=== PATIENT | female | born 1995 | race Caucasian/White ===

== ENCOUNTER 2022-01-01 03:39 | Inpatient (IN) | payer MEDICARE ==
[~2022-01-01] VITALS: Ht 156 cm; Wt 96.0 kg
[2022-01-01] MEDS ORDERED: PREN1TAB78 PO (04:52)
[2022-01-01] MEDS ORDERED: FERR325T6 PO (04:52)
[2022-01-01] MEDS ORDERED: CARBOPROST TROMETHAMINE 250 MCG/ML AMPUL IM PRN (05:00)
[2022-01-01] MEDS ORDERED: NALOXONE HCL 0.4 MG/ML 1ML VIAL IM PRN (05:00)
[2022-01-01] MEDS ORDERED: OXYTOCIN 30 UNITS/500ML NS PMX 500 ML IV SCH ×2 (05:00→09:30)
[2022-01-01] MEDS ORDERED: MISOPROSTOL 100MCG TABLET VG SCH (05:00)
[2022-01-01] MEDS ORDERED: METHYLERGONOVINE MALEATE 0.2 MG/ML IM PRN (05:00)
[2022-01-01] MEDS ORDERED: RHO(D) IMMUNE GLOBULIN 300 MCG/SYR IM ONE (05:00)
[2022-01-01] MEDS ORDERED: OXYTOCIN 10 UNITS/ML 1ML ONE ×2 (05:09→08:31)
[2022-01-01] MEDS ORDERED: MORPHINE SULFATE/PF 1MG/ML 10ML AMP ONE (05:09)
[2022-01-01] MEDS ORDERED: CEFAZOLIN SODIUM 1000MG/VIAL ONE (05:09)
[2022-01-01] MEDS ORDERED: FENTANYL CITRATE/PF 50MCG/ML 2ML VIAL ONE (05:09)
[2022-01-01] MEDS ORDERED: ONDANSETRON HCL 4MG/2ML INJ ONE (05:09)
[2022-01-01] MEDS ORDERED: EPHEDRINE SULFATE 50MG/ML VIAL ONE (05:09)
[2022-01-01] MEDS ORDERED: CITRIC ACID/SODIUM CITRATE SOLN 30ML UDC PO ONE (05:30)
[2022-01-01 05:33] LABS: BASOPHILS % 0.3 % (0.0-2.0); EOSINOPHILS % 0.8 % (0.0-5.0); HEMATOCRIT. 32.2 % (36.0-48.0); HEMOGLOBIN. 10.3 g/dL (12.0-16.0); LYMPHOCYTES % 19.7 % (20.0-50.0); MEAN CORPUSCULAR VOLUME 77.6 fL (81.0-99.0); MEAN PLATELET VOLUME 8.9 fl (7.4-10.4); MONOCYTES % 4.4 % (2.0-8.0); NEUTROPHILS % 74.8 % (40.0-76.0); PLATELET 365 x1000/uL (130-400); RED BLOOD CELL COUNT 4.14 mill/uL (4.2-5.4); RED CELL DISTRIBUTION WIDTH 14.8 % (11.6-14.6)
[2022-01-01 05:39] LABS: *AMPHETAMINES SCREEN URINE NEGATIVE (NEGATIVE); *BARBITURATES SCREEN URINE NEGATIVE (NEGATIVE); *BENZODIAZEPINES SCREEN URINE NEGATIVE (NEGATIVE); *COCAINE SCREEN URINE NEGATIVE (NEGATIVE); CANNABINOID URINE SCREEN NEGATIVE (NEGATIVE); METHADONE URINE SCREEN NEGATIVE (NEGATIVE); OPIATES URINE SCREEN NEGATIVE (NEGATIVE); PHENCYCLIDINE URINE SCREEN NEGATIVE (NEGATIVE)
[2022-01-01 05:40] LABS: INR 0.9; PARTIAL THROMBOPLASTIN TIME 24.5 sec (23.4-31.0); PROTHROMBIN TIME 10.2 sec (9.6-11.0)
[2022-01-01 06:00] LABS: HEPATITIS B SURFACE ANTIGEN NEGATIVE
[2022-01-01] MEDS: LACTATED RINGERS 1,000 ML IV SCH (06:23)
[2022-01-01] MEDS ORDERED: DIPHENHYDRAMINE 50MG/ML VIAL ONE (08:24)
[2022-01-01] MEDS ORDERED: KETOROLAC 60MG/2ML VIAL IM ONE (08:30)
[2022-01-01] MEDS ORDERED: BUTORPHANOL TARTRATE 2 MG/ML VIAL IV PRN (08:30)
[2022-01-01] MEDS ORDERED: NALOXONE HCL 0.4 MG/ML 1ML VIAL IV PRN (08:30)
[2022-01-01] MEDS ORDERED: BISACODYL 10MG SUPP PR PRN (09:30)
[2022-01-01] MEDS ORDERED: LANOLIN OINT 7GM TUBE TOP PRN (09:30)
[2022-01-01] MEDS ORDERED: IBUPROFEN 400MG TABLET PO PRN (09:30)
[2022-01-01] MEDS ORDERED: ONDANSETRON HCL 4MG/2ML INJ IV PRN (09:30)
[2022-01-01] MEDS ORDERED: DIPHENHYDRAMINE 25MG CAPSULE PO PRN (09:30)
[2022-01-01] MEDS ORDERED: HEMORRHOIDAL SUPP PR PRN (09:30)
[2022-01-01] MEDS ORDERED: ACETAMINOPHEN WITH CODEINE 300/30MG TABLET PO PRN (09:30)
[2022-01-01] MEDS ORDERED: RHO(D) IMMUNE GLOBULIN 300 MCG/SYR IM PRN (09:30)
[2022-01-01 09:40] LABS: CLARITY URINE HAZY (CLEAR); COLOR URINE YELLOW (YELLOW)
[2022-01-01 09:41] LABS: KETONES URINE NEGATIVE (NEGATIVE); LEUKOCYTE ESTERASE URINE NEGATIVE (NEGATIVE); NITRITE URINE NEGATIVE (NEGATIVE); OCCULT BLOOD URINE 3+ (NEGATIVE); PROTEIN URINE 1+ (NEGATIVE); UROBILINOGEN URINE 0.2 E.U./dL (0.2-1.0)
[2022-01-01 16:00] VITALS: BP 116/70
[2022-01-01] MEDS: DIPHENHYDRAMINE 50MG/ML VIAL IV PRN ×2 (18:04→20:38)
[2022-01-01 19:15] VITALS: BP 109/68
[2022-01-01] MEDS: KETOROLAC 30MG/ML VIAL IV SCH (19:49)
[2022-01-01] MEDS: SIMETHICONE 80MG TABLET CHEW PO SCH (19:51)
[2022-01-01] MEDS: MAGNESIUM/ALUMINUM HYDROXIDE/SIMETHICONE 30ML UDC PO SCH (21:00)
[2022-01-01] MEDS ORDERED: DOCUSATE SODIUM 100MG CAPSULE PO SCH (21:00)
[2022-01-02 00:01] VITALS: BP 95/54
[2022-01-02] MEDS: LACTATED RINGERS 1,000 ML IV SCH (01:50)
[2022-01-02] MEDS ORDERED: KETOROLAC 30MG/ML VIAL IV SCH (02:15)
[2022-01-02] MEDS: KETOROLAC 30MG/ML VIAL IV SCH (02:16)
[2022-01-02] MEDS ORDERED: TETANUS, DIPHTHERIA, PERTUSSIS VAC/PF 0.5ML (>10YR OLD) IM ONE (03:45)
[2022-01-02 04:00] VITALS: BP 99/66
[2022-01-02 08:00] VITALS: BP 107/64
[2022-01-02 08:15] LABS: BASOPHILS % 0.1 % (0.0-2.0); EOSINOPHILS % 0.7 % (0.0-5.0); HEMATOCRIT. 27.4 % (36.0-48.0); LYMPHOCYTES % 14.5 % (20.0-50.0); MEAN CORPUSCULAR HEMOGLOBIN 25.7 pg (28.0-32.0); MEAN PLATELET VOLUME 8.7 fl (7.4-10.4); MONOCYTES % 6.2 % (2.0-8.0); NEUTROPHILS % 78.5 % (40.0-76.0); PLATELET 305 x1000/uL (130-400); RED BLOOD CELL COUNT 3.51 mill/uL (4.2-5.4); RED CELL DISTRIBUTION WIDTH 14.8 % (11.6-14.6)
[2022-01-02] MEDS ORDERED: PRENATAL VIT/FE FUMARATE/FA TABLET PO SCH (09:00)
[2022-01-02] MEDS: MAGNESIUM/ALUMINUM HYDROXIDE/SIMETHICONE 30ML UDC PO SCH ×2 (12:59→19:23)
[2022-01-02] MEDS: IBUPROFEN 800MG TABLET PO PRN ×2 (12:59→19:22)
[2022-01-02] MEDS: FERROUS SULFATE 325MG TABLET PO SCH ×2 (12:59→19:22)
[2022-01-02] MEDS: SIMETHICONE 80MG TABLET CHEW PO SCH ×2 (12:59→19:22)
[2022-01-02 16:00] VITALS: BP 87/56
[2022-01-02 19:15] VITALS: BP 121/79
[2022-01-03] MEDS: IBUPROFEN 800MG TABLET PO PRN (03:15)
[2022-01-03 04:00] VITALS: BP 121/67
[2022-01-03 08:00] VITALS: BP 113/87
[2022-01-03] MEDS ORDERED: IBUP-2030 MT (09:16)
== END 2022-01-03 15:40 | disposition home or self-care (01) | DRG 540 ==
LOC: 8 EST LDRP 03:39 → OBSVTOIN 03:39 → 8EST 15:00
PROVIDERS: ADMIT Obstetrics & Gynecology; ATTEND Obstetrics & Gynecology
PROC: 10D00Z1 Extraction of Products of Conception, Low, Open Approach (ICD-10-PCS; principal; 2022-01-01)
DX: O34.211 Maternal care for low transverse scar from previous cesarean delivery (principal); D62 Acute posthemorrhagic anemia; O32.8XX0 Maternal care for other malpresentation of fetus, not applicable or unspecified; O99.12 Other diseases of the blood and blood-forming organs and certain disorders involving the immune mechanism complicating childbirth; O99.214 Obesity complicating childbirth; Z20.822 Contact with and (suspected) exposure to COVID-19; D72.829 Elevated white blood cell count, unspecified; Z37.0 Single live birth; Z3A.39 39 weeks gestation of pregnancy; O99.013 Anemia complicating pregnancy, third trimester
CPT/HCPCS: 36415; 80305; 81003; 85025; 86592; 86703; 86762; 86850; 86900; 87340; 87426; 88307; 90715; 99281; J0595; J0690; J1200; J1885; J2274; J2405; J3010; J3490; J7120; A4315; J2590